=== PATIENT | female | born 1995 | race Caucasian/White ===

== ENCOUNTER 2025-01-19 14:22 | Outpatient (CLI) | payer OTHER | END 2025-01-19 15:24 | disposition home or self-care (01) | LOC: NST 14:22 | PROVIDERS: ATTEND Obstetrics & Gynecology Maternal & Fetal Medicine | DX: Z34.83 Encounter for supervision of other normal pregnancy, third trimester (principal) ==

== ENCOUNTER 2025-01-26 11:38 | Outpatient (CLI) | payer OTHER | END 2025-01-26 12:38 | disposition home or self-care (01) | LOC: NST 11:38 | PROVIDERS: ATTEND Obstetrics & Gynecology Maternal & Fetal Medicine | DX: Z34.83 Encounter for supervision of other normal pregnancy, third trimester (principal) ==

== ENCOUNTER 2025-02-03 08:55 | Outpatient (CLI) | payer OTHER | END 2025-02-03 10:26 | disposition home or self-care (01) | LOC: NST 08:55 | PROVIDERS: ATTEND Obstetrics & Gynecology Maternal & Fetal Medicine | DX: Z34.83 Encounter for supervision of other normal pregnancy, third trimester (principal) ==

== ENCOUNTER 2025-02-06 06:42 | Outpatient (CLI) | payer OTHER | END 2025-02-06 07:37 | disposition home or self-care (01) | LOC: NST 06:42 | PROVIDERS: ATTEND Obstetrics & Gynecology | DX: Z34.83 Encounter for supervision of other normal pregnancy, third trimester (principal) ==

== ENCOUNTER 2025-02-09 09:24 | Outpatient (CLI) | payer OTHER | END 2025-02-09 10:14 | disposition home or self-care (01) | LOC: NST 09:24 | PROVIDERS: ATTEND Obstetrics & Gynecology | DX: Z34.83 Encounter for supervision of other normal pregnancy, third trimester (principal) ==

== ENCOUNTER 2025-02-12 22:28 | Inpatient (IN) | payer OTHER ==
[~2025-02-12] VITALS: Ht 152.4 cm; Wt 1.8 kg
[2025-02-12 21:46] VITALS: BP 133/81
[2025-02-12] MEDS ORDERED: MORPHINE SULFATE 4 MG/ML CARTRIDGE IV PRN (22:45)
[2025-02-12] MEDS ORDERED: RINGERS SOLUTION,LACTATED 1,000 ML IV SCH (22:45)
[2025-02-12 23:12] LABS: BASO % 0.5 % (0.1-1.2); EOS # 0.15 (0.04-0.54); EOS % 1.4 % (0.7-7.0); LYMPH # 2.34 (1.18-3.74); LYMPH % 21.4 % (19.3-53.1); MEAN PLATELET VOLUME 10.10 fl (9.4-12.4); MONO # 0.88 (0.24-0.82); MONO % 8.0 % (4.7-12.5); NEUT # 7.47 (1.56-6.13); NEUT % 68.1 % (34.0-71.1); RED CELL DISTRIBUTION WIDTH 13.2 % (11.6-14.4)
[2025-02-12 23:21] VITALS: BP 116/72
[2025-02-12 23:28] LABS: INR < 0.93
[2025-02-12 23:32] LABS: ALT/SGPT 18.0 U/L (12-78); AST/SGOT 14.0 U/L (15-37); BILIRUBIN TOTAL 0.23 mg/dL (0.3-1.2); BUN CREA RATIO 18.0 (7.0-25.0); CREATININE SERUM 0.68 mg/dL (0.55-1.02); GFR 101.59; GLOBULINA 3.9 G/DL (2.4-3.5); GLUCOSE FASTING 93.0 mg/dL (65-100); OSMOLALITY SERUM 275.0 MOSM/KG (275-295)
[2025-02-13 03:41] VITALS: BP 106/60
[2025-02-13 07:42] VITALS: BP 111/69
[2025-02-13] MEDS ORDERED: OXYTOCIN 500 ML IV ONE ×2 (08:30→09:00)
[2025-02-13] MEDS ORDERED: OXYTOCIN 20 UNITS/500ML RL PIGGYBAG IV ONE (08:55)
[2025-02-13 11:33] VITALS: BP 105/56
[2025-02-13] MEDS ORDERED: ERYTHROMYCIN BASE OPHT 1GM EACH TUBE OP ONE (14:12)
[2025-02-13] MEDS ORDERED: OXYTOCIN 10 UNITS/ML VIAL ONE ×2 (14:12→18:51)
[2025-02-13] MEDS ORDERED: CITRIC ACID/SODIUM CITRATE 30 ML BLIST.PACK PO SCH (14:30)
[2025-02-13] MEDS ORDERED: CEFAZOLIN SODIUM 1,000 MG VIAL IV SCH (14:30)
[2025-02-13] MEDS ORDERED: MORPHINE SULFATE 4 MG/ML CARTRIDGE IV SCH (17:33)
[2025-02-13] MEDS ORDERED: OXYTOCIN 1,000 ML IV ONE (17:45)
[2025-02-13] MEDS ORDERED: KETOROLAC TROMETHAMINE 30 MG VIAL IV SCH (18:00)
[2025-02-13] MEDS ORDERED: KETOROLAC TROMETHAMINE 30 MG VIAL ONE (18:51)
[2025-02-13] MEDS ORDERED: SIMETHICONE 125 MG CAPSULE PO NR (19:00)
[2025-02-13 20:07] VITALS: BP 124/76
[2025-02-14] VITALS: BP 106/70
[2025-02-14 04:30] VITALS: BP 107/71
[2025-02-14] MEDS ORDERED: ACETAMINOPHEN 500 MG GEL..CAP PO SCH (06:00)
[2025-02-14 08:00] VITALS: BP 107/67
[2025-02-14 08:46] LABS: BASO % 0.3 % (0.1-1.2); EOS # 0.07 (0.04-0.54); EOS % 0.5 % (0.7-7.0); LYMPH # 1.31 (1.18-3.74); LYMPH % 8.8 % (19.3-53.1); MEAN PLATELET VOLUME 10.40 fl (9.4-12.4); MONO # 1.01 (0.24-0.82); MONO % 6.8 % (4.7-12.5); NEUT # 12.43 (1.56-6.13); NEUT % 83.1 % (34.0-71.1); RED CELL DISTRIBUTION WIDTH 13.9 % (11.6-14.4)
[2025-02-14] MEDS ORDERED: GABAPENTIN 300 MG CAPSULE PO SCH (09:00)
[2025-02-14] MEDS ORDERED: PNV,CALCIUM 72/IRON/FOLIC ACID 1 TAB TABLET PO SCH (09:00)
[2025-02-14] MEDS ORDERED: SIMETHICONE 125 MG CAPSULE PO SCH (09:00)
[2025-02-14] MEDS ORDERED: DOCUSATE SODIUM 100MG CAP PO SCH (09:00)
[2025-02-14 17:10] VITALS: BP 102/68
[2025-02-15] VITALS: BP 96/55
[2025-02-15 08:47] VITALS: BP 108/68
[2025-02-15 16:36] VITALS: BP 121/80
[2025-02-16] VITALS: BP 107/71
[2025-02-16 09:07] VITALS: BP 113/66
== END 2025-02-16 12:46 | disposition home or self-care (01) | DRG 788 ==
LOC: LDR 22:28 → O/R 02-13 15:54 → OB/GYN 02-13 17:30
PROVIDERS: Obstetrics & Gynecology Gynecology; ADMIT Obstetrics & Gynecology; ATTEND Obstetrics & Gynecology
PROC: 4A1HXCZ Monitoring of Products of Conception, Cardiac Rate, External Approach (ICD-10-PCS; 2025-02-12)
PROC: 3E033VJ Introduction of Other Hormone into Peripheral Vein, Percutaneous Approach (ICD-10-PCS; 2025-02-13)
PROC: 10D00Z1 Extraction of Products of Conception, Low, Open Approach (ICD-10-PCS; principal; 2025-02-13 15:00)
DX: O61.0 Failed medical induction of labor (principal); Z3A.38 38 weeks gestation of pregnancy; Z37.0 Single live birth